=== PATIENT | male | born 1970 | race Caucasian/White ===

== ENCOUNTER 2016-11-06 07:44 | Day surgery (SDC) | payer OTHER ==
--- NOTE | 2016-10-25 10:10 | HISTORY AND PHYSICAL E ---
History and Physical NAME: FLORENTINO ESPINOZA : 1970 AGE: 46Y ADMITTED: 11/06/2016 ROOM: PRIMARY DOCTOR: Dr. Kurtz. CHIEF COMPLAINT: Rectal bleeding. HISTORY: Patient is known to me. I saw him in the past for upper scope. Patient did have vomiting blood. MEDICATIONS: 1. Crestor. 2. Tylenol. SOCIAL HISTORY: He does not smoke, drinks socially. ALLERGIES: No known allergies. REVIEW OF SYSTEMS: CARDIAC: High cholesterol. ENDOCRINE: Negative. NEURO/PSYCH: Depression, anxiety. GI: Reflux. The patient, reviewed records. Saw him in 2006. The patient did have upper scope May 2016 regarding dysphagia and reflux. No ulcers, no malignancies. A 3-cm hernia with mild esophagitis, gastritis, duodenitis. Patient presents with rectal bleeding. SOCIAL HISTORY: Quit smoking, quit drinking. CHIEF COMPLAINT: Dysphagia, rectal bleeding. Ultrasound shows sludge in the gallbladder. Liver was compatible with fatty liver. His biopsy negative for bacteria, H. pylori. PHYSICAL EXAMINATION: GENERAL: Pleasant, alert, oriented, in no acute distress. VITAL SIGNS: Blood pressure 140/80, pulse 80, respirations 18, temp is 98. HEENT: Normal. NECK: Supple. LUNGS: Clear. ABDOMINAL: Soft. NEUROLOGIC: Exam negative. CONCLUSION: Rectal bleeding. PLAN: Colonoscopy scheduled for 11/06/2016. DICTATING PHYSICIAN: JARAD CHAMBERS M.D. [id number] [id number] PHY#: [id number] ID: [id number] JOB#: [id number] ACCT: [id number] cc: >
[~2016-11-06 07:44] MED LIST: EPINEPHRINE INJ 1 MG/10 ML DISP.SYRIN ONE; FLUMAZENIL INJ 0.5 MG/5 ML VIAL IV ONE; GLUCAGON,HUMAN RECOMB 1 MG INJ ONE; GLYCOPYRROLATE INJ 0.4 MG/2 ML VIAL ONE; LIDOCAINE 2% JELLY 30 ML TUBE ONE; NALOXONE HCL INJ/PF 0.4 MG/1 ML SDV ONE; ONDANSETRON HCL INJ/PF 4 MG/2 ML SDV ONE; PROMETHAZINE HCL INJ 25 MG/1 ML VIAL ONE
[2016-11-06] MEDS: MIDAZOLAM 2 MG/2 ML INJ ONE ×3 (08:14→08:26)
[2016-11-06] MEDS: FENTANYL CITRATE INJ/PF 100 MCG/2 ML AMPUL ONE ×2 (08:16→08:28)
[2016-11-06 09:35] LABS: ABSOLUTE EOSINOPHILS # (AUTO) 0.1 10^3/uL (0.0-0.6); ABSOLUTE LYMPHOCYTES (AUTO) 1.1 10^3/uL (0.5-4.7); ABSOLUTE MONOCYTES (AUTO) 0.6 10^3/uL (0.1-1.4); ABSOLUTE NEUT (AUTO) 7.4 10^3/uL (1.7-8.2); BASOPHILS % (AUTO) 0.3 % (0-2); EOSINOPHILS % (AUTO) 1.3 % (0-6); HEMATOCRIT 43.3 % (37.9-51.0); HEMOGLOBIN 14.6 g/dL (13.5-17.0); HGB HCT DIFFERENCE 0.5; LYMPHOCYTES % (AUTO) 11.8 % (13-45); MEAN CORPUSCULAR HEMOGLOBIN 29.7 pg (27.0-33.4); MEAN CORPUSCULAR HGB CONC 33.7 g/dL (32.0-36.0); MEAN CORPUSCULAR VOLUME 88 fl (80-97); MONOCYTES % (AUTO) 6.5 % (3-13); RED BLOOD COUNT 4.92 10^6/uL (4.35-5.55); RED CELL DISTRIBUTION WIDTH 12.9 % (11.5-14.0); SEGMENTED NEUTROPHILS % (AUTO) 80.1 % (42-78); WHITE BLOOD COUNT 9.3 10^3/uL (4.0-10.5)
[2016-11-06 09:46] VITALS: BP 106/66
[2016-11-06 10:11] LABS: ERYTHROCYTE SEDIMENTATION RATE 8 mm/hr (0-15)
--- NOTE | 2016-11-06 13:56 | DISCHARGE SUMMARY E ---
Discharge Summary NAME: FLORENTINO ESPINOZA : 1970 AGE: 46Y ADMITTED: 11/06/2016 DISCHARGED: 11/06/2016 HISTORY: The patient is a 46 years old male presented regarding blood in the stool. He does have arrhythmia, ablation, high cholesterol, hypertension, hiatus hernia. Today's colonoscopy shows no cancer. He did have external hemorrhoids, diminutive polyp sigmoid 2 mm, 2 mm polyp cecum, scattered diverticulosis sigmoid and right colon. DISCHARGE PLAN: 1. Soft diet. 2. Hold aspirin and nonsteroidal 3 days. 3. Awaiting biopsy results. 4. Consideration followup colonoscopy in 2 years pending biopsy results. DICTATING PHYSICIAN: JARAD CHAMBERS M.D. [id number] PHY#: [id number] ID: [id number] JOB#: [id number] ACCT: [id number] cc:JARAD CHAMBERS M.D. >
--- NOTE | 2016-11-06 13:56 | OPERATIVE REPORT E ---
Operative Report NAME: FLORENTINO ESPINOZA : 1970 AGE: 46Y DATE OF SURGERY: ROOM: PREOPERATIVE DIAGNOSIS: Rectal bleeding. POSTOPERATIVE DIAGNOSES: 1. External hemorrhoids, small. 2. Enlarged prostate, mild. 3. Sigmoid descending colon diverticulosis. 4. Diminutive polyp sigmoid 2 mm. 5. Diminutive polyp cecum 2 mm. 6. Occasional diverticulosis in the right colon and sigmoid descending colon. ANESTHESIA: Versed 5, Fentanyl 200. SURGEON: JARAD CHAMBERS M.D. PROCEDURE: Colonoscopy. RECTAL EXAMINATION: External hemorrhoids. PROCEDURE: Rectosigmoid shows 2 mm sigmoid polyp, sigmoid descending colon, occasional diverticulosis transverse colon, normal ascending colon, occasional diverticulosis cecum 2 mm. Ileocecal polyp visualized. Tried to intubate the ileum unsuccessfully. Biopsy obtained from cecal polyp, cecum, ascending diverticulosis, transverse colon normal. Patient has a lot of foamy bubbles. Prep is good, but too foamy. Descending sigmoid again, diverticulosis, sigmoid polyp and external hemorrhoids. DISCHARGE PLAN: Soft low residual diet for 3 days, hold aspirin and nonsteroidals 3 days, baseline CBC with sed rate. Awaiting biopsy. Consideration followup colonoscopy 2 year pending biopsy results. DICTATING PHYSICIAN: JARAD CHAMBERS M.D. [id number] Y#: [id number] ID: [id number] JOB#: [id number] ACCT: [id number] cc:JARAD CHAMBERS M.D. >
== END 2016-11-06 09:47 | disposition home or self-care (01) ==
LOC: END 07:44
PROVIDERS: ATTEND Specialist
PROC: 0DBN8ZX Excision of Sigmoid Colon, Via Natural or Artificial Opening Endoscopic, Diagnostic (ICD-10-PCS; 2016-11-06)
PROC: 0DBH8ZX Excision of Cecum, Via Natural or Artificial Opening Endoscopic, Diagnostic (ICD-10-PCS; principal; 2016-11-06 08:00)
DX: D12.0 Benign neoplasm of cecum (principal); K63.5 Polyp of colon; K57.30 Diverticulosis of large intestine without perforation or abscess without bleeding; N40.0 Benign prostatic hyperplasia without lower urinary tract symptoms; K62.5 Hemorrhage of anus and rectum; K44.9 Diaphragmatic hernia without obstruction or gangrene; K21.9 Gastro-esophageal reflux disease without esophagitis; E78.00 Pure hypercholesterolemia, unspecified; I10 Essential (primary) hypertension; I49.9 Cardiac arrhythmia, unspecified; Z79.899 Other long term (current) drug therapy; Z87.891 Personal history of nicotine dependence
CPT/HCPCS: 45380; 36415; 85025; 85652; 88305 ×2; J2250; J3010; J1610; J0171; J2310; J2405; J2550; J3490